=== PATIENT | female | born 1995 | race Caucasian/White ===

== ENCOUNTER 2019-10-09 17:38 | Emergency (ER) | payer SELFPAY ==
[~2019-10-09] VITALS: Ht 167.6 cm; Wt 86.9 kg
--- NOTE | 2019-10-09 18:21 | NUR ---
First contact with pt. Pt c/o VB, states she is approximately 3 months . Pt very tearful, her mother is at bedside. Verbal support provided. Pt to US via candy.
[2019-10-09 18:30] LABS: BASOPHILS # (AUTO) 0.07 x10^3/uL (0-0.1); BASOPHILS % (AUTO) 1 % (0-1); EOSINOPHILS # (AUTO) 0.17 x10^3/uL (0-0.4); EOSINOPHILS % (AUTO) 2 % (1-7); LYMPHOCYTES % (AUTO) 30 % (22-44); MD NO; MEAN CORPUSCULAR HEMOGLOBIN 30.8 pg (27.0-34.8); MEAN CORPUSCULAR HGB CONC 33.5 g/dL (32.4-35.8); MEAN CORPUSCULAR VOLUME 92.2 fL (80-100); MEAN PLATELET VOLUME 7.8 fL (7.4-10.4); MONOCYTES # (AUTO) 0.83 x10^3/uL (0.2-0.8); MONOCYTES % (AUTO) 9 % (2-9); NEUTROPHILS # (AUTO) 5.79 x10^3/uL (1.8-6.8); NEUTROPHILS % (AUTO) 59 % (42-75); PLATELET COUNT 410 x10^3/uL (130-400); RED BLOOD COUNT 4.82 x10^6/uL (3.82-5.3)
[2019-10-09 18:42] LABS: ANION GAP 5 mmol/L (5-15); CALCIUM 8.6 mg/dL (8.5-10.1); CHLORIDE 111 mmol/L (98-107); CREATININE 0.92 mg/dL (0.55-1.02)
--- NOTE | 2019-10-09 18:53 | NUR ---
PATIENT HAS RECENTLY URINATED, PRIOR TO BEING TAKEN BACK TO ROOM. PATIENT STATED THAT SHE HAS TO PEE OFTEN. WILL UPDATE PROVIDER.
[2019-10-09 18:58] VITALS: BP 103/56
--- NOTE | 2019-10-09 19:30 | NUR ---
PATIENT VERBALLY CONFIRMED EDUCATION REGARDING DISCHARGE. NO NOTED ACUTE DISTRESS. AMBULATORY WITHOUT COMPLICATIONS TO DISCHARGE DESK.
== END 2019-10-09 19:31 | disposition home or self-care (01) ==
LOC: ED 19:03
DX: O03.9 Complete or unspecified spontaneous abortion without complication (principal); R10.2 Pelvic and perineal pain
CPT/HCPCS: 36415; 76856; 80048; 84702; 85025; 86901; 99284